=== PATIENT | male | born 1980 | race African-American/Black ===

== ENCOUNTER 2021-01-17 00:20 | Inpatient (IN) | payer SELFPAY ==
[2021-01-17 01:22] LABS: #Basophils 0.1 thou/uL (0.0-0.2); #Eosinphils 0.2 thou/uL (0.0-0.7); #Lymphocytes 1.2 thou/uL (1.20-3.40); #Monocytes 0.4 thou/uL (0.11-0.59); #Neutrophils 2.8 thou/uL (1.40-6.50); %Basophils 1.7 % (0.0-1.0); %Eosinophils 3.9 % (0.0-10.0); %Lymphocytes 25.8 % (21.0-51.0); %Monocytes 8.9 % (0.0-10.0); %Neutrophils 59.7 % (42.0-75.0); Hemoglobin 13.6 g/dL (14.0-18.0); Mean Corpuscular HGB CONC 32.1 g/dL (32.0-36.0); Mean Corpuscular Hemoglobin 31.2 pg (27.0-31.0); Mean Corpuscular Volume 97.2 fL (78.0-98.0); Mean Platelet Volume 9.4 fL (7.4-10.4); Platelet Count 197 thou/uL (130-400); RBC Distribution Width 13.8 % (11.5-14.5); Red Blood Cell (RBC) Count 4.35 mill/uL (4.70-6.10); White Blood Cell (WBC) Count 4.8 thou/uL (4.8-10.8)
[2021-01-17 01:44] LABS: ALT (SGPT) 25 U/L (8-55); AST (SGOT) 34 U/L (5-34); Albumin 3.4 g/dL (3.5-5.0); Alkaline Phosphatase 77 U/L (40-110); Anion Gap 16 mmol/L (10-20); BUN (Urea Nitrogen) 26 mg/dL (8.9-20.6); Bilirubin, Total 0.7 mg/dL (0.2-1.2); Calc. Creatinine Clearance 0 mL/min (70-130); Calcium 8.2 mg/dL (7.8-10.44); Carbon Dioxide 21 mmol/L (22-29); Chloride 105 mmol/L (98-107); Globulin 2.9 g/dL (2.4-3.5); Glucose 110 mg/dL (70-105); Potassium 3.9 mmol/L (3.5-5.1); Protein, Total 6.3 g/dL (6.0-8.3); Sodium 138 mmol/L (136-145)
[2021-01-17 02:05] LABS: Bacteria/HPF None Seen HPF (None Seen); Bilirubin Negative (Negative); Blood, Urine 1+ (Negative); Clarity Clear (Clear); Glucose, Urine (Dipstick) Normal (Negative); Ketone, Urine Negative (Negative); Leukocyte Negative Leu/uL (Negative); Nitrite Negative (Negative); Protein, Urine (Dipstick) 300 mg/dL (Neg-Trace); RBC/HPF 0-3 HPF (0-3); Specific Gravity, Urine 1.027 (1.002-1.036); Squamous Epithelial None Seen HPF (0-3); WBC/HPF 0-3 HPF (0-3)
[2021-01-17] MEDS ORDERED: Acetaminophen 500 MG TAB ONE (02:23)
[2021-01-17] MEDS ORDERED: hydrALAZINE 20 MG/ML VIAL ONE ×2 (03:01→05:25)
[2021-01-17] MEDS ORDERED: Ondansetron PF 4 MG/2 ML Vial ONE (03:44)
[2021-01-17] MEDS ORDERED: Morphine 4 MG/ML VIAL ONE (03:44)
[2021-01-17] MEDS ORDERED: Ondansetron PF 4 MG/2 ML Vial IVP PRN (04:23)
[2021-01-17] MEDS ORDERED: Senokot S 8.6-50 MG TAB PO PRN (04:23)
[2021-01-17] MEDS ORDERED: Ondansetron ODT 4 MG TAB PO PRN (04:23)
[2021-01-17] MEDS ORDERED: Bisacodyl 5 MG TAB PO PRN (04:23)
[2021-01-17] MEDS ORDERED: hydrALAZINE 20 MG/ML VIAL SLOW IVP PRN (04:26)
[2021-01-17] MEDS ORDERED: Morphine 4 MG/ML VIAL SLOW IVP PRN (04:29)
[2021-01-17] MEDS ORDERED: Sodium Chloride 0.9% (PF) 10 ML VIAL FS PRN (05:00)
[2021-01-17 06:37] VITALS: BMI 31.9
[2021-01-17] MEDS: Sodium Chloride 0.9% 1,000 ML IV SCH ×2 (08:43→17:30)
[2021-01-17] MEDS: Pantoprazole 40 MG VIAL IVP SCH (08:45)
[2021-01-17] MEDS ORDERED: Amlodipine 5 MG TAB PO SCH (09:00)
[2021-01-17] MEDS ORDERED: Metoprolol Tartrate 25 MG TAB PO SCH (09:00)
[2021-01-17 09:45] LABS: Troponin I 0.062 ng/mL (< 0.028)
[2021-01-17 10:25] LABS: Medtox Reader # READER 1; Phencyclidine (PCP) Not Detected (NotDetected); THC/Cannabinoid Screen Not Detected (NotDetected)
[2021-01-17 10:26] LABS: Amphetamine Not Detected (NotDetected); Cocaine Metabolite Screen Detected (NotDetected); Methamphetamine Not Detected (NotDetected); Opiate Screen Not Detected (NotDetected)
[2021-01-17 10:27] LABS: Barbiturates Screen Not Detected (NotDetected); Benzodiazepine Screen Not Detected (NotDetected); Medtox Control Line Valid? VALID (VALID); Methadone Not Detected (NotDetected); Oxycodone Screen Not Detected (NotDetected); Tricyclic Screen Not Detected (NotDetected)
[2021-01-17 10:38] LABS: Creatinine, Urine 222.23 mg/dL (63-166)
[2021-01-17] MEDS: Acetaminophen 325 MG TAB PO PRN ×2 (12:45→21:31)
[2021-01-17 13:48] LABS: Troponin I 0.049 ng/mL (< 0.028)
[2021-01-17] MEDS ORDERED: FLU VACC QS2020-21(6MOS UP)/PF 60 MCG/0.5 ML SYRINGE IM ONE (14:30)
[2021-01-17 15:45] LABS: Troponin I 0.048 ng/mL (< 0.028)
[2021-01-17 17:06] LABS: SARS-CoV-2 PCR by NAA Not Detected (NotDetected)
[2021-01-17] MEDS: Amlodipine 5 MG TAB PO SCH (21:27)
[2021-01-18] MEDS ORDERED: hydrALAZINE 20 MG/ML VIAL SLOW IVP SCH (01:00)
[2021-01-18] MEDS: Amlodipine 5 MG TAB PO SCH ×2 (08:50→20:45)
[2021-01-18] MEDS: Pantoprazole 40 MG VIAL IVP SCH (08:51)
[2021-01-18] MEDS ORDERED: Aspirin 325 MG TAB PO SCH ×2 (09:00→15:00)
[2021-01-18] MEDS ORDERED: Polyethylene Glycol 3350 17 GM Packet PO SCH (10:15)
[2021-01-18 11:52] LABS: #Basophils 0.1 thou/uL (0.0-0.2); #Eosinphils 0.2 thou/uL (0.0-0.7); #Monocytes 0.4 thou/uL (0.11-0.59); #Neutrophils 2.9 thou/uL (1.40-6.50); %Basophils 1.6 % (0.0-1.0); %Eosinophils 3.7 % (0.0-10.0); %Lymphocytes 22.1 % (21.0-51.0); %Monocytes 8.4 % (0.0-10.0); %Neutrophils 64.1 % (42.0-75.0); Hemoglobin 13.7 g/dL (14.0-18.0); Mean Corpuscular HGB CONC 31.4 g/dL (32.0-36.0); Mean Corpuscular Hemoglobin 30.8 pg (27.0-31.0); Mean Corpuscular Volume 98.3 fL (78.0-98.0); Mean Platelet Volume 9.3 fL (7.4-10.4); Platelet Count 209 thou/uL (130-400); RBC Distribution Width 13.7 % (11.5-14.5); Red Blood Cell (RBC) Count 4.45 mill/uL (4.70-6.10); White Blood Cell (WBC) Count 4.5 thou/uL (4.8-10.8)
[2021-01-18 12:17] LABS: Anion Gap 10 mmol/L (10-20); BUN (Urea Nitrogen) 23 mg/dL (8.9-20.6); CRP (Inflammatory) 1.18 mg/dL (= or < 0.5); Calc. Creatinine Clearance 74 mL/min (70-130); Calcium 8.5 mg/dL (7.8-10.44); Carbon Dioxide 26 mmol/L (22-29); Chloride 107 mmol/L (98-107); Glucose 113 mg/dL (70-105); Potassium 4.2 mmol/L (3.5-5.1); Sodium 139 mmol/L (136-145)
[2021-01-18] MEDS ORDERED: niCARdipine 25 MG in Sodium Chloride 0.9% 250 ML 250 ML IVPB SCH (14:45)
[2021-01-18] MEDS: hydrALAZINE 25 MG TAB PO SCH ×2 (15:01→20:45)
[2021-01-18] MEDS: Isosorbide Dinitrate 5 MG TAB PO SCH ×2 (17:46→20:45)
[2021-01-18] MEDS ORDERED: Metoprolol Tartrate 25 MG TAB PO SCH (21:00)
[2021-01-19] MEDS: Aspirin 325 MG TAB PO SCH (10:09)
[2021-01-19] MEDS: Amlodipine 5 MG TAB PO SCH ×2 (10:09→20:02)
[2021-01-19] MEDS: Pantoprazole 40 MG VIAL IVP SCH (10:12)
[2021-01-19] MEDS: hydrALAZINE 25 MG TAB PO SCH ×3 (10:12→20:02)
[2021-01-19] MEDS: Isosorbide Dinitrate 5 MG TAB PO SCH ×3 (10:14→20:02)
[2021-01-19] MEDS: Acetaminophen 325 MG TAB PO PRN (18:00)
[2021-01-20] MEDS: Acetaminophen 325 MG TAB PO PRN (04:05)
[2021-01-20] MEDS ORDERED: Carvedilol 6.25 MG TAB PO SCH ×2 (09:00→17:00)
[2021-01-20] MEDS ORDERED: Amlodipine 5 MG TAB PO SCH (09:00)
[2021-01-20] MEDS: Isosorbide Dinitrate 5 MG TAB PO SCH ×2 (09:08→15:59)
[2021-01-20] MEDS: Aspirin 325 MG TAB PO SCH (09:08)
[2021-01-20] MEDS: hydrALAZINE 25 MG TAB PO SCH ×2 (09:08→15:59)
[2021-01-20 10:05] LABS: Anion Gap 11 mmol/L (10-20); BUN (Urea Nitrogen) 21 mg/dL (8.9-20.6); Calc. Creatinine Clearance 76 mL/min (70-130); Calcium 8.6 mg/dL (7.8-10.44); Carbon Dioxide 28 mmol/L (22-29); Chloride 105 mmol/L (98-107); Glucose 104 mg/dL (70-105); Potassium 3.9 mmol/L (3.5-5.1); Sodium 140 mmol/L (136-145)
[2021-01-20 11:45] VITALS: TEMP 97.8
[2021-01-20 15:28] VITALS: BP 137/89
[2021-01-21 13:27] LABS: ANA Symphony (Qualitative) Negative (Negative); ANA Symphony (Quantitative) 0.3 Ratio (< 0.7 Negative); CCP IgG Antibody 0.5 EliAU/mL (<7 Negative); EliA RAS New Method **** NEW METHOD ****; Rheumatoid Factor IgA Antibody 3.7 IU/mL (<14 Negative); Rheumatoid Factor IgM Antibody 0.6 IU/mL (<3.5 Negative); dsDNA IgG Antibody Less than 0.5 IU/mL (<10 Negative)
== END 2021-01-20 16:10 | disposition home or self-care (01) | DRG 683 ==
LOC: ERS 00:20 → SURG A 04:22 → OBSVTOIN 01-18 13:42 → CCU 01-18 16:12 → 2NO 01-19 13:36
PROVIDERS: ADMIT Internal Medicine; ATTEND Internal Medicine
DX: N17.9 Acute kidney failure, unspecified (principal); I42.0 Dilated cardiomyopathy; Z20.822 Contact with and (suspected) exposure to COVID-19; I12.9 Hypertensive chronic kidney disease with stage 1 through stage 4 chronic kidney disease, or unspecified chronic kidney disease; N18.30 Chronic kidney disease, stage 3 unspecified; F14.10 Cocaine abuse, uncomplicated; I16.0 Hypertensive urgency
CPT/HCPCS: 36415; 71045; 74176; 76705; 78227; 80048; 80053; 80306; 81003; 81015; 82570; 83520; 83690; 84300; 84484; 85025; 85652; 86038; 86140; 86200; 86225; 87635; 93005; 93010; 93306; 94760; 96374; 96375; 96376; A9537; C9113; G0378; J0360; J2270; J2405; U0003; U0005

== ENCOUNTER 2021-08-16 09:46 | Emergency (ER) | payer SELFPAY ==
[~2021-08-16 09:46] MED LIST: Iopamidol-370 76% 500 ML 1 ML ONE
[2021-08-16 10:50] LABS: #Eosinphils 0.1 thou/uL (0.0-0.7); #Lymphocytes 0.8 thou/uL (1.20-3.40); #Monocytes 0.7 thou/uL (0.11-0.59); #Neutrophils 8.4 thou/uL (1.40-6.50); %Basophils 0.3 % (0.0-1.0); %Eosinophils 0.7 % (0.0-10.0); %Lymphocytes 7.9 % (21.0-51.0); %Monocytes 6.9 % (0.0-10.0); %Neutrophils 84.2 % (42.0-75.0); Hemoglobin 14.2 g/dL (14.0-18.0); Mean Corpuscular HGB CONC 32.5 g/dL (32.0-36.0); Mean Corpuscular Hemoglobin 30.6 pg (27.0-31.0); Mean Corpuscular Volume 94.2 fL (78.0-98.0); Platelet Count 253 thou/uL (130-400); RBC Distribution Width 12.4 % (11.5-14.5); Red Blood Cell (RBC) Count 4.65 mill/uL (4.70-6.10)
[2021-08-16 11:13] LABS: ALT (SGPT) 26 U/L (8-55); AST (SGOT) 31 U/L (5-34); Albumin 3.6 g/dL (3.5-5.0); Alkaline Phosphatase 85 U/L (40-110); Anion Gap 11 mmol/L (10-20); BUN (Urea Nitrogen) 16 mg/dL (8.9-20.6); Bilirubin, Total 0.7 mg/dL (0.2-1.2); Calc. Creatinine Clearance 0 mL/min (70-130); Calcium 8.8 mg/dL (7.8-10.44); Carbon Dioxide 25 mmol/L (22-29); Chloride 103 mmol/L (98-107); Globulin 3.7 g/dL (2.4-3.5); Glucose 108 mg/dL (70-105); Lipase 14 U/L (8-78); Protein, Total 7.3 g/dL (6.0-8.3); Sodium 135 mmol/L (136-145)
[2021-08-16] MEDS ORDERED: Ondansetron PF 4 MG/2 ML Vial ONE (11:30)
[2021-08-16] MEDS ORDERED: Morphine 4 MG/ML VIAL ONE ×2 (11:30→12:11)
[2021-08-16 13:19] LABS: Bacteria/HPF None Seen HPF (None Seen); Bilirubin Negative (Negative); Blood, Urine Negative (Negative); Clarity Clear (Clear); Glucose, Urine (Dipstick) Normal (Negative); Ketone, Urine Trace mg/dL (Negative); Leukocyte Negative Leu/uL (Negative); Nitrite Negative (Negative); Protein, Urine (Dipstick) 50 mg/dL (Neg-Trace); RBC/HPF 0-3 HPF (0-3); Specific Gravity, Urine 1.023 (1.002-1.036); Squamous Epithelial None Seen HPF (0-3); Urobilinogen Normal mg/dL (Less than 2); WBC/HPF 0-3 HPF (0-3)
[2021-08-16] MEDS ORDERED: Mag-Al 1200 mg/1200 mg/30 ML UDCUP ONE (13:30)
[2021-08-16] MEDS ORDERED: Lidocaine Viscous Sol 2% 15 ml UD Cup ONE (13:30)
[2021-08-16] MEDS ORDERED: Ketorolac Tromethamine 30 MG/ML VIAL ONE (14:53)
[2021-08-16] MEDS ORDERED: Isosorbide Dinitrate 20 MG TAB PO SCH (17:00)
[2021-08-16] MEDS ORDERED: Carvedilol 6.25 MG TAB PO SCH (17:00)
[2021-08-16] MEDS ORDERED: hydrALAZINE 25 MG TAB ONE (17:00)
== END 2021-08-16 17:29 | disposition home or self-care (01) ==
LOC: ERS 09:46
DX: I13.10 Hypertensive heart and chronic kidney disease without heart failure, with stage 1 through stage 4 chronic kidney disease, or unspecified chronic kidney disease (principal); N18.9 Chronic kidney disease, unspecified; M25.511 Pain in right shoulder; K62.89 Other specified diseases of anus and rectum; I43 Cardiomyopathy in diseases classified elsewhere
CPT/HCPCS: 36415; 71045; 74177; 76705; 80053; 81003; 81015; 83605; 83690; 84484; 85025; 93005; 96372; 96374; 96375; 96376; J0500; J1885; J2270; J2405

== ENCOUNTER 2023-12-25 16:29 | Emergency (ER) | payer OTHER, SELFPAY ==
[2023-12-25 18:43] LABS: #Eosinphils 0.2 thou/uL (0.0-0.7); #Monocytes 0.5 thou/uL (0.11-0.59); #Neutrophils 2.7 thou/uL (1.40-6.50); %Basophils 0.7 % (0.0-1.0); %Eosinophils 5.2 % (0.0-10.0); %Lymphocytes 23.5 % (21.0-51.0); %Monocytes 10.4 % (0.0-10.0); Hematocrit 48.2 % (42.0-52.0); Hemoglobin 15.8 g/dL (14.0-18.0); Mean Corpuscular HGB CONC 32.8 g/dL (32.0-36.0); Mean Corpuscular Hemoglobin 30.9 pg (27.0-31.0); Mean Corpuscular Volume 94.3 fl (78.0-98.0); Platelet Count 200 10x3/uL (130-400); RBC Distribution Width 12.7 % (11.5-14.5); Red Blood Cell (RBC) Count 5.11 mill/uL (4.70-6.10); White Blood Cell (WBC) Count 4.4 10x3/uL (4.8-10.8)
[2023-12-25 19:16] LABS: ALT (SGPT) 16 U/L (8-55); AST (SGOT) 21 U/L (5-34); Alkaline Phosphatase 99 U/L (40-110); Anion Gap 15 mmol/L (10-20); BUN (Urea Nitrogen) 21 mg/dL (8.9-20.6); Bilirubin, Total 0.3 mg/dL (0.2-1.2); Calc. Creatinine Clearance 0 mL/min (70-130); Calcium 9.1 mg/dL (7.8-10.44); Carbon Dioxide 24 mmol/L (22-29); Chloride 108 mmol/L (98-107); Estimated GFR 48; Globulin 3.2 g/dL (2.4-3.5); Glucose 79 mg/dL (70-105); Potassium 4.2 mmol/L (3.5-5.1); Protein, Total 7.2 g/dL (6.0-8.3); Sodium 143 mmol/L (136-145)
[2023-12-25] MEDS ORDERED: Ketorolac Tromethamine 30 MG (1 mL) VIAL ONE (19:57)
[2023-12-25 21:02] LABS: Influenza A by NAA Not Detected (NotDetected); Influenza B by NAA Not Detected (NotDetected); SARS-CoV-2 NAA Rapid Test Not Detected (NotDetected)
[2023-12-25] MEDS ORDERED: Cyclobenzaprine 10 MG TAB ONE (21:31)
== END 2023-12-25 21:51 | disposition home or self-care (01) ==
LOC: ERS 16:29
DX: M54.2 Cervicalgia (principal); I10 Essential (primary) hypertension; Z55.6 Problems related to health literacy
CPT/HCPCS: 36415; 72040; 80053; 85025; 96372; J1885